=== PATIENT | male | born 1980 | race Caucasian/White ===

== ENCOUNTER 2024-01-06 02:30 | Emergency (ER) | payer OTHER ==
[~2024-01-06] VITALS: Ht 180.3 cm; Wt 112.5 kg
[2024-01-06 02:37] VITALS: BP_SYST 201; PULSE 124; RESP 13; TEMP 97.4; O2SAT 98
[2024-01-06] MEDS: LABETALOL HCL 20 MG/4 ML CARTRIDGE IVP ONE (03:16)
[2024-01-06 03:29] LABS: BASOPHILS % (AUTO) 0.4 % (0.0-2.0); EOSINOPHILS # (AUTO) 0.1 K/uL (0.0-0.4); EOSINOPHILS % (AUTO) 1.8 % (0.0-4.0); HEMATOCRIT 50.5 % (36-54); HEMOGLOBIN 17.9 g/dL (14.0-18.0); LYMPHOCYTES # (AUTO) 2.2 K/uL (1.0-5.5); LYMPHOCYTES % (AUTO) 30.3 % (20.5-51.5); MEAN CORPUSCULAR HEMOGLOBIN 31 pg (27-31); MEAN CORPUSCULAR HGB CONC 35 % (32-36); MEAN CORPUSCULAR VOLUME 87 fL (79.0-98.0); MONOCYTES # (AUTO) 0.7 K/uL (0.0-1.0); MONOCYTES % (AUTO) 9.7 % (1.7-9.3); NEUTROPHILS # (AUTO) 4.3 K/uL (1.8-7.7); NEUTROPHILS % (AUTO) 57.8 % (40.0-70.0); PLATELET COUNT (AUTO) 157 K/uL (130-430); RED BLOOD CELL COUNT(AUTO) 5.82 MIL/uL (4.2-6.2); WHITE BLOOD COUNT (AUTO) 7.4 K/uL (4.8-10.8)
[2024-01-06 03:35] LABS: ANION GAP 10 (5-15); CALCIUM 9.6 mg/dL (8.4-11.0); CARBON DIOXIDE 25 mmol/L (23-29); CHLORIDE 99 mmol/L (98-107); CREATININE 2.06 mg/dL (0.55-1.30); GFR AFRICAN AMERICAN 45 mL/min (>90); GFR NON AFRICAN-AMERICAN 37 mL/min (>90); GLUCOSE 291 mg/dL (74-106); POTASSIUM 3.8 mmol/L (3.5-5.1); SODIUM SERUM 134 mmol/L (136-145); UREA NITROGEN, BLOOD 38 mg/dL (8-21)
[2024-01-06] MEDS: ENALAPRILAT DIHYDRATE 1.25 MG/ML VIAL IVP ONE (03:48)
[2024-01-06 04:13] LABS: BARBITURATE, URINE NEGATIVE (NEG <=200)
[2024-01-06 04:14] LABS: BENZODIAZEPINE, URINE NEGATIVE (NEG <=150); CANNABINOID, URINE NEGATIVE (NEG <=50); COCAINE, URINE NEGATIVE (NEG <=150); METHAMPHETAMINES SCREEN,URINE NEGATIVE (NEG <=500); OPIATE, URINE NEGATIVE (NEG <=100); PHENCYCLIDINE SCREEN,URINE NEGATIVE (NEG <=25); UR TRICYCLIC ANTIDEPRESSANTS NEGATIVE (NEG <=300); URINE AMPHETAMINE NEGATIVE (NEG <=500); URINE METHADONE NEGATIVE (NEG <=200); URINE OXYCODONE SCREEN NEGATIVE (NEG <=100)
[2024-01-06 04:58] VITALS: RESP 13; TEMP 97.4
[2024-01-06] MEDS ORDERED: LOSA-415 PO (06:04)
[2024-01-06] MEDS ORDERED: METF-379 PO (06:04)
[2024-01-06 06:33] VITALS: BP_SYST 115; PULSE 94; O2SAT 96
== END 2024-01-06 06:29 | disposition home or self-care (01) ==
LOC: SED 02:30
DX: I12.9 Hypertensive chronic kidney disease with stage 1 through stage 4 chronic kidney disease, or unspecified chronic kidney disease (principal); E11.22 Type 2 diabetes mellitus with diabetic chronic kidney disease; N18.9 Chronic kidney disease, unspecified; Z79.899 Other long term (current) drug therapy
CPT/HCPCS: 36415; 80048; 80307; 84484; 85025; 93005; 96374; 96375; 99285